=== PATIENT | male | born 2000 | race African-American/Black ===

== ENCOUNTER → 2022-05-06 | Outpatient (CLI) | payer MEDICAID ==
[2022-05-06 11:13] LABS: FREE T4 1.45 NG/DL (0.78-1.33); THYROID STIMULATING HORMONE 2.74 uIU/ML (0.463-3.98)
== END ==
LOC: M LAB 09:27
PROVIDERS: ATTEND Internal Medicine Cardiovascular Disease
DX: R00.0 Tachycardia, unspecified (principal)